=== PATIENT | male | born 1950 | race African-American/Black ===

== ENCOUNTER 2018-03-16 06:22 | Inpatient (IN) ==
[2018-03-10 17:10] LABS: Basophils # 0.1 10*3/uL (0.0-0.2); Basophils % 0.5 % (0.0-0.8); Eosinophils # 0.3 10*3/uL (0.0-0.87); Eosinophils % 2.6 % (0.00-10.9); Hemoglobin 13.1 GM/DL (14.0-18.0); Immature Granulocytes % 0.6 %; Immature Granulocytes Absolute 0.06 #; Lymphocytes # 2.2 10*3/uL (1.4-4.0); Lymphocytes % 21.8 % (21.2-54.2); Mean Corpuscular HGB Conc 32.8 GM/DL (32-36); Mean Corpuscular Hemoglobin 28 PG (27-34); Mean Corpuscular Volume 85.1 FL (87-102); Mean Platelet Volume 9.3 FL (9.6-12.0); Monocytes # 0.8 10*3/uL (0.11-0.8); Neutrophils # 6.8 10*3/uL (1.4-7.4); Neutrophils % 66.5 % (38.7-73.9); Platelet Count 399 T/CUMM (130-400); White Blood Count 10.3 T/CUMM (4-12)
[2018-03-10 17:22] LABS: Calcium 9.3 MG/DL (8.5-10.1); Osmolality,Calculated 275.7 MOS/KG (273-304)
[~2018-03-16 06:22] MED LIST: ALVIMOPAN 12 MG CAPSULE PO ONE; ERTAPENEM 1,000 MG in SODIUM CHLORIDE 0.9% 100 ML IV ONE
[2018-03-16] MEDS ORDERED: DIAZEPAM 5 MG TABLET PO ONE (08:45)
[2018-03-16] MEDS ORDERED: FAMOTIDINE 20 MG TABLET PO ONE (08:45)
[2018-03-16] MEDS: LACTATED RINGERS 1,000 ML IV SCH ×2 (09:00→18:00)
[2018-03-16] MEDS ORDERED: DIAZEPAM 5 MG TABLET ONE (09:09)
[2018-03-16] MEDS ORDERED: ALVIMOPAN 12 MG CAPSULE ONE (09:10)
[2018-03-16] MEDS ORDERED: FAMOTIDINE 20 MG TABLET ONE (09:10)
[2018-03-16] MEDS ORDERED: TISSUE ADHESIVE 1 EACH APPLICATOR TOP ONE (16:16)
[2018-03-16] MEDS: MORPHINE 10 MG/1 ML VIAL IV PRN ×5 (18:55→19:15)
[2018-03-16] MEDS ORDERED: ONDANSETRON 4 MG/2 ML VIAL ONE (18:59)
[2018-03-16] MEDS ORDERED: MORPHINE 10 MG/1 ML VIAL ONE (18:59)
[2018-03-16] MEDS ORDERED: ONDANSETRON 4 MG/2 ML VIAL IV PRN ×2 (19:13→21:23)
[2018-03-16] MEDS ORDERED: SUGAMMADEX 200 MG/2 ML VIAL IV ONE (19:18)
[2018-03-16] MEDS ORDERED: MEPERIDINE 50 MG/1 ML VIAL IV ONE (19:41)
[2018-03-16] MEDS ORDERED: MEPERIDINE 25 MG/1 ML VIAL IV ONE (20:00)
[2018-03-16] MEDS ORDERED: NON-FORMULARY MEDICATION (Cholecalciferol (Vitamin D3) [Vitamin D3] 2,000 UNIT) PO SCH (21:23)
[2018-03-16] MEDS ORDERED: ERGOCALCIFEROL 50,000 UNIT CAPSULE PO SCH (21:23)
[2018-03-16] MEDS ORDERED: PROMETHAZINE 25 MG/1 ML VIAL IM PRN (21:23)
[2018-03-16] MEDS ORDERED: DOCUSATE SODIUM 100 MG CAPSULE PO PRN (21:23)
[2018-03-16 21:47] LABS: Basophils % 0.2 % (0.0-0.8); Eosinophils % 0.1 % (0.00-10.9); Hematocrit 39.8 VOL% (42.0-52.0); Hemoglobin 13.7 GM/DL (14.0-18.0); Immature Granulocytes % 0.3 %; Immature Granulocytes Absolute 0.06 #; Lymphocytes # 1.6 10*3/uL (1.4-4.0); Lymphocytes % 9.2 % (21.2-54.2); Mean Corpuscular HGB Conc 34.4 GM/DL (32-36); Mean Corpuscular Hemoglobin 29 PG (27-34); Mean Corpuscular Volume 82.9 FL (87-102); Mean Platelet Volume 9.2 FL (9.6-12.0); Monocytes # 0.9 10*3/uL (0.11-0.8); Monocytes % 5.1 % (1.7-12.7); Neutrophils # 14.7 10*3/uL (1.4-7.4); Neutrophils % 85.1 % (38.7-73.9); Platelet Count 370 T/CUMM (130-400); Red Cell Distribution Width 15.9 % (9.3-17.3); White Blood Count 17.3 T/CUMM (4-12)
[2018-03-16 22:12] LABS: Calcium 8.8 MG/DL (8.5-10.1); Osmolality,Calculated 281.5 MOS/KG (273-304)
[2018-03-16] MEDS: SERTRALINE 25 MG TABLET PO SCH (23:09)
[2018-03-16] MEDS: KETOROLAC 15 MG/1 ML VIAL IV SCH (23:09)
[2018-03-16] MEDS: amLODIPine 10 MG TABLET PO SCH (23:09)
[2018-03-16] MEDS: ALVIMOPAN 12 MG CAPSULE PO SCH (23:09)
[2018-03-17] MEDS ORDERED: LABETALOL 20 MG/4 ML SYRINGE IV ONE (00:37)
[2018-03-17] MEDS ORDERED: PROPOFOL 200 MG/20 ML VIAL IV ONE (00:37)
[2018-03-17] MEDS ORDERED: SEVOFLURANE 1 UNIT/15 MINUTE INH ONE (00:38)
[2018-03-17] MEDS ORDERED: ACETAMINOPHEN 1,000 MG/100 ML VIAL IV ONE (00:39)
[2018-03-17] MEDS ORDERED: fentaNYL 100 MCG/2 ML VIAL ONE (00:39)
[2018-03-17] MEDS ORDERED: ONDANSETRON 4 MG/2 ML VIAL ONE (00:39)
[2018-03-17] MEDS ORDERED: LACTATED RINGERS 1,000 ML IV ONE (00:39)
[2018-03-17] MEDS ORDERED: ROCURONIUM 100 MG/10 ML VIAL IV ONE (00:39)
[2018-03-17] MEDS: LACTATED RINGERS 1,000 ML IV SCH ×4 (00:45→23:11)
[2018-03-17] MEDS: KETOROLAC 15 MG/1 ML VIAL IV SCH ×4 (03:50→21:24)
[2018-03-17] MEDS: MORPHINE 4 MG/1 ML VIAL IV PRN (05:37)
[2018-03-17 06:31] LABS: Basophils % 0.1 % (0.0-0.8); Hematocrit 40.4 VOL% (42.0-52.0); Hemoglobin 13.9 GM/DL (14.0-18.0); Immature Granulocytes % 0.5 %; Lymphocytes # 1.1 10*3/uL (1.4-4.0); Lymphocytes % 5.2 % (21.2-54.2); Mean Corpuscular HGB Conc 34.4 GM/DL (32-36); Mean Corpuscular Hemoglobin 28 PG (27-34); Mean Corpuscular Volume 82.6 FL (87-102); Mean Platelet Volume 9.9 FL (9.6-12.0); Monocytes # 0.8 10*3/uL (0.11-0.8); Neutrophils # 18.1 10*3/uL (1.4-7.4); Neutrophils % 90.2 % (38.7-73.9); Platelet Count 414 T/CUMM (130-400); Red Blood Count 4.89 MC/CUMM (3.8-5.5); Red Cell Distribution Width 16.1 % (9.3-17.3)
[2018-03-17 06:44] LABS: Calcium 8.9 MG/DL (8.5-10.1); Osmolality,Calculated 276.7 MOS/KG (273-304); Potassium 4.5 MMOL/L (3.5-5.1)
[2018-03-17 07:02] LABS: Hypochromasia Slight; Lymphocytes 5 % (20-55); Platelet Estimate Adequate; Segmented Neutrophils 86 % (50-85); Total Cells Counted 100
[2018-03-17] MEDS: PANTOPRAZOLE 40 MG VIAL IV SCH (08:36)
[2018-03-17] MEDS: ENOXAPARIN 40 MG/0.4 ML SYRINGE SUBCUT SCH (08:37)
[2018-03-17] MEDS: MULTIVITAMIN (CENTRUM) TABLET PO SCH (08:37)
[2018-03-17] MEDS: ALVIMOPAN 12 MG CAPSULE PO SCH ×2 (08:37→21:24)
[2018-03-17] MEDS: SERTRALINE 25 MG TABLET PO SCH (21:24)
[2018-03-17] MEDS: amLODIPine 10 MG TABLET PO SCH (21:24)
[2018-03-18] MEDS: KETOROLAC 15 MG/1 ML VIAL IV SCH ×4 (03:14→20:50)
[2018-03-18] MEDS: LACTATED RINGERS 1,000 ML IV SCH ×3 (05:44→20:50)
[2018-03-18 06:10] LABS: Basophils % 0.2 % (0.0-0.8); Eosinophils # 0.1 10*3/uL (0.0-0.87); Eosinophils % 0.5 % (0.00-10.9); Hematocrit 34.2 VOL% (42.0-52.0); Immature Granulocytes % 0.4 %; Immature Granulocytes Absolute 0.06 #; Lymphocytes # 1.2 10*3/uL (1.4-4.0); Mean Corpuscular HGB Conc 35.1 GM/DL (32-36); Mean Corpuscular Hemoglobin 29 PG (27-34); Mean Corpuscular Volume 82.4 FL (87-102); Mean Platelet Volume 10.1 FL (9.6-12.0); Monocytes # 0.9 10*3/uL (0.11-0.8); Monocytes % 6.2 % (1.7-12.7); Neutrophils # 12.8 10*3/uL (1.4-7.4); Neutrophils % 84.7 % (38.7-73.9); Platelet Count 353 T/CUMM (130-400); Red Blood Count 4.15 MC/CUMM (3.8-5.5); Red Cell Distribution Width 16.3 % (9.3-17.3); White Blood Count 15.1 T/CUMM (4-12)
[2018-03-18 06:39] LABS: Calcium 8.4 MG/DL (8.5-10.1); Osmolality,Calculated 278.4 MOS/KG (273-304); Potassium 3.8 MMOL/L (3.5-5.1)
[2018-03-18] MEDS: MULTIVITAMIN (CENTRUM) TABLET PO SCH (09:07)
[2018-03-18] MEDS: PANTOPRAZOLE 40 MG VIAL IV SCH (09:07)
[2018-03-18] MEDS: ENOXAPARIN 40 MG/0.4 ML SYRINGE SUBCUT SCH (09:08)
[2018-03-18] MEDS: ALVIMOPAN 12 MG CAPSULE PO SCH ×2 (09:08→20:50)
[2018-03-18] MEDS: SERTRALINE 25 MG TABLET PO SCH (20:50)
[2018-03-18] MEDS: amLODIPine 10 MG TABLET PO SCH (20:50)
[2018-03-19] MEDS: KETOROLAC 15 MG/1 ML VIAL IV SCH ×3 (03:26→16:29)
[2018-03-19] MEDS: LACTATED RINGERS 1,000 ML IV SCH (04:55)
[2018-03-19 05:30] LABS: Basophils % 0.4 % (0.0-0.8); Eosinophils # 0.4 10*3/uL (0.0-0.87); Eosinophils % 3.2 % (0.00-10.9); Hematocrit 32.2 VOL% (42.0-52.0); Hemoglobin 11.1 GM/DL (14.0-18.0); Immature Granulocytes % 0.4 %; Immature Granulocytes Absolute 0.04 #; Lymphocytes # 1.8 10*3/uL (1.4-4.0); Lymphocytes % 16.6 % (21.2-54.2); Mean Corpuscular HGB Conc 34.5 GM/DL (32-36); Mean Corpuscular Hemoglobin 28 PG (27-34); Mean Corpuscular Volume 82.1 FL (87-102); Mean Platelet Volume 9.4 FL (9.6-12.0); Monocytes % 9.2 % (1.7-12.7); Neutrophils # 7.8 10*3/uL (1.4-7.4); Neutrophils % 70.2 % (38.7-73.9); Platelet Count 331 T/CUMM (130-400); Red Blood Count 3.92 MC/CUMM (3.8-5.5); Red Cell Distribution Width 15.9 % (9.3-17.3); White Blood Count 11.1 T/CUMM (4-12)
[2018-03-19 06:02] LABS: Calcium 8.1 MG/DL (8.5-10.1)
[2018-03-19 06:03] LABS: Osmolality,Calculated 276.4 MOS/KG (273-304); Potassium 3.8 MMOL/L (3.5-5.1)
[2018-03-19] MEDS: ENOXAPARIN 40 MG/0.4 ML SYRINGE SUBCUT SCH (10:50)
[2018-03-19] MEDS: ALVIMOPAN 12 MG CAPSULE PO SCH ×2 (10:50→21:45)
[2018-03-19] MEDS: PANTOPRAZOLE 40 MG VIAL IV SCH (10:50)
[2018-03-19] MEDS: MULTIVITAMIN (CENTRUM) TABLET PO SCH (10:51)
[2018-03-19] MEDS: SERTRALINE 25 MG TABLET PO SCH (21:45)
[2018-03-19] MEDS: amLODIPine 10 MG TABLET PO SCH (21:45)
[2018-03-20 04:40] LABS: Basophils # 0.1 10*3/uL (0.0-0.2); Basophils % 0.5 % (0.0-0.8); Eosinophils # 0.3 10*3/uL (0.0-0.87); Eosinophils % 2.6 % (0.00-10.9); Hematocrit 33.9 VOL% (42.0-52.0); Hemoglobin 11.4 GM/DL (14.0-18.0); Immature Granulocytes % 0.5 %; Immature Granulocytes Absolute 0.05 #; Lymphocytes % 8.9 % (21.2-54.2); Mean Corpuscular HGB Conc 33.6 GM/DL (32-36); Mean Corpuscular Hemoglobin 28 PG (27-34); Mean Corpuscular Volume 84.1 FL (87-102); Mean Platelet Volume 9.2 FL (9.6-12.0); Monocytes # 1.1 10*3/uL (0.11-0.8); Neutrophils # 8.4 10*3/uL (1.4-7.4); Neutrophils % 77.5 % (38.7-73.9); Platelet Count 329 T/CUMM (130-400); Red Blood Count 4.03 MC/CUMM (3.8-5.5); Red Cell Distribution Width 15.6 % (9.3-17.3); White Blood Count 10.9 T/CUMM (4-12)
[2018-03-20 07:58] VITALS: BP 137/69
[2018-03-20] MEDS: MULTIVITAMIN (CENTRUM) TABLET PO SCH (08:56)
[2018-03-20] MEDS: ALVIMOPAN 12 MG CAPSULE PO SCH (08:56)
[2018-03-20] MEDS: PANTOPRAZOLE 40 MG VIAL IV SCH (08:56)
[2018-03-20] MEDS: MORPHINE 4 MG/1 ML VIAL IV PRN (09:00)
[2018-03-20] MEDS ORDERED: RIVAROXABAN 20 MG TABLET PO SCH (09:00)
== END 2018-03-20 12:40 | DRG 330 ==
LOC: N.3E 06:22 → N.SDSINP 06:22 → N.OR 06:22 → N.3E 18:42 → SUPCPDRO 18:42 → N.3E 20:17
PROVIDERS: ADMIT Surgery; ATTEND Surgery

== ENCOUNTER 2018-04-17 12:59 | Inpatient (IN) ==
[2018-04-17 14:21] LABS: Basophils # 0.1 10*3/uL (0.0-0.2); Basophils % 0.6 % (0.0-0.8); Eosinophils # 0.2 10*3/uL (0.0-0.87); Eosinophils % 1.9 % (0.00-10.9); Hematocrit 31.3 VOL% (42.0-52.0); Hemoglobin 10.1 GM/DL (14.0-18.0); Immature Granulocytes % 1.4 %; Immature Granulocytes Absolute 0.15 #; Lymphocytes # 1.5 10*3/uL (1.4-4.0); Lymphocytes % 13.8 % (21.2-54.2); Mean Corpuscular HGB Conc 32.3 GM/DL (32-36); Mean Corpuscular Hemoglobin 27 PG (27-34); Mean Corpuscular Volume 83.9 FL (87-102); Monocytes # 0.9 10*3/uL (0.11-0.8); Monocytes % 8.6 % (1.7-12.7); Neutrophils # 8.1 10*3/uL (1.4-7.4); Neutrophils % 73.7 % (38.7-73.9); Platelet Count 433 T/CUMM (130-400); Red Blood Count 3.73 MC/CUMM (3.8-5.5); Red Cell Distribution Width 16.6 % (9.3-17.3); White Blood Count 10.9 T/CUMM (4-12)
[2018-04-17 14:34] LABS: Calcium 8.8 MG/DL (8.5-10.1); Osmolality,Calculated 281.3 MOS/KG (273-304)
[2018-04-17 14:40] LABS: INR 1.4; PT Patient Result 14.7 SECS; Partial Thromboplastin Time 36.3 SECS (0-40)
[2018-04-17 14:42] LABS: Troponin I Only < 0.015 NG/ML (0.00-0.045)
[2018-04-18 08:35] LABS: Hematocrit 26.8 VOL% (42.0-52.0); Hemoglobin 8.8 GM/DL (14.0-18.0)
[2018-04-19 07:12] LABS: Basophils # 0.1 10*3/uL (0.0-0.2); Basophils % 0.7 % (0.0-0.8); Eosinophils # 0.5 10*3/uL (0.0-0.87); Eosinophils % 5.6 % (0.00-10.9); Hematocrit 27.3 VOL% (42.0-52.0); Hemoglobin 9.1 GM/DL (14.0-18.0); Immature Granulocytes % 0.5 %; Immature Granulocytes Absolute 0.04 #; Lymphocytes # 2.1 10*3/uL (1.4-4.0); Lymphocytes % 23.7 % (21.2-54.2); Mean Corpuscular HGB Conc 33.3 GM/DL (32-36); Mean Corpuscular Hemoglobin 28 PG (27-34); Mean Corpuscular Volume 83.7 FL (87-102); Mean Platelet Volume 8.9 FL (9.6-12.0); Monocytes % 11.2 % (1.7-12.7); Neutrophils # 5.1 10*3/uL (1.4-7.4); Neutrophils % 58.3 % (38.7-73.9); Platelet Count 381 T/CUMM (130-400); Red Blood Count 3.26 MC/CUMM (3.8-5.5); Red Cell Distribution Width 16.4 % (9.3-17.3); White Blood Count 8.7 T/CUMM (4-12)
[2018-04-19 07:41] LABS: Calcium 8.6 MG/DL (8.5-10.1); Osmolality,Calculated 277.3 MOS/KG (273-304); Potassium 3.7 MMOL/L (3.5-5.1)
[2018-04-19 10:57] VITALS: BP 114/70
== END 2018-04-19 16:00 | DRG 378 ==
LOC: EDUNIT# → EDBD → N.ED 12:59 → N.EDINP 16:19 → N.3E 17:39
PROVIDERS: ADMIT Surgery; ATTEND Surgery